=== PATIENT | female | born 1950 | race Caucasian/White ===

== ENCOUNTER 2016-10-12 07:25 | Observation (INO) | payer OTHER ==
--- NOTE | ~2016-10-12 | DS ---
Discharge Summary [facility] [address] [place]. [address] NAME: DEISI WERNER : 50 STATUS : DIS David PAT#: [id number] AGE: 66 ADM/REG DATE : 10/12/16 MR#: [id number] REPORT SERV DATE: 10/14/16 DICTATED BY: CHEPE CATHERINE DATE: 10/13/16 REPORT STATUS : Draft TRANSCRIBED BY: MODMari DATE: 10/13/16 ADMISSION DATE: 10/12/2016 DISCHARGE DATE: 10/13/2016 DISCHARGE DIAGNOSES: Include: 1. Chest pain. 2. Coronary artery disease. 3. Diabetes type 2, new diagnosis with an A1c of 6.6. 4. Hypertension. 5. Hyperlipidemia. 6. Hypothyroidism with most recent TSH 1.560, on Synthroid therapy. DISCHARGE MEDICATIONS: Were as follows: Aspirin 81 mg daily, Lipitor 40 mg at bedtime, Plavix 75 mg daily, Synthroid 125 mcg daily, melatonin 10 mg at bedtime, Diovan 160 mg daily, metoprolol 25 mg p.o. twice a day, Maxzide 25 mg one tab daily, and lastly metformin 500 mg daily, prescription written to start this on 10/16/2016. Also prescriptions were written for diabetic supplies, meters, lancets, and test strips. HISTORY OF PRESENT ILLNESS: This is a pleasant 66-year-old white female, who originally presented to the [facility] with chest pain. Please see initial H and P by Hospitalist at [facility]. CONSULTANTS DURING THIS ADMISSION: Include Cardiology Dr. Vidales. The patient had an intermediate risk stress test given her comorbidities of hyperlipidemia, newly diagnosed diabetes. She was transferred to [facility] for cardiac catheterization. Please see the discharge summary of Dr. Vincent Lama M.D. CONTINUATION OF HOSPITAL COURSE: I began seeing the patient on 10/12/2016. She was status post her heart catheterization where two drug-eluting stents were placed to her LAD artery. She was started on dual anti-platelet therapy. Given her new diagnosis of diabetes, diabetes education was ordered and took place here in the hospital. She was given one dose of Levemir during this hospitalization and has been given a prescription for metformin to start two days post discharge with prompt followup with her primary care. The patient recovered well after her heart catheterization, was monitored in the cardiac short-stay unit overnight, was felt safe for discharge home on 10/13/2016. She has a followup appointment with Dr. Vidales, parent partner on 11/08/2016, and she will follow up with her primary care on 10/28/2016. She was in agreement with all these plans going forward. Questions were answered at bedside with both patient and . BLAKE/JANY Chepe Catherine, NICKIE Discharge Summary [address] [place] [address] NAME: DEISI WERNER : 50 STATUS : DIS David PAT#: [id number] AGE: 66 ADM/REG DATE : 10/12/16 MR#: [id number] REPORT SERV DATE: 10/14/16 DICTATED BY: CHEPE CATHERINE [facility] DATE: 10/13/16 REPORT STATUS : Draft TRANSCRIBED BY: JANY DATE: 10/13/16 / [id number] CC: Tammy Doran D.O.
[~2016-10-12 07:25] MED LIST: ASA5GR PO; BL CHROMIUM200 MCG OR; DIOV160 PO; FISH-EPA1000 MG PO; FOLIC PO; MAX25 PO; MAXIDE PO; MELATONIN10 M2 PO; SYN125 PO; VITA10 PO; VITAMIN A & D PO; VITAMIN C100 MG PO; VITE1000 PO
[2016-10-13] MEDS ORDERED: LIPITOR40 (11:11)
[2016-10-13] MEDS ORDERED: ASAB PO (11:11)
[2016-10-13] MEDS ORDERED: PLAVIX PO (11:12)
[2016-10-13] MEDS ORDERED: LOP25 PO (11:14)
[2016-10-13] MEDS ORDERED: GLUCPH PO (11:16)
== END 2016-10-13 11:40 | disposition home or self-care (01) ==
LOC: CORLMH 07:25 → SSU1 09:24
DX: I25.110 Atherosclerotic heart disease of native coronary artery with unstable angina pectoris (principal); E11.9 Type 2 diabetes mellitus without complications; I10 Essential (primary) hypertension; E78.5 Hyperlipidemia, unspecified; E03.9 Hypothyroidism, unspecified; Z79.82 Long term (current) use of aspirin; Z79.899 Other long term (current) drug therapy
CPT/HCPCS: 82962; 93005; 93458; 99152; 99153; A9270-GY; C1713; C1725; C1769; C1874; C1887; C1894; C9600; G0378; J0583; J2250; J3010; Q9967